=== PATIENT | male | born 1965 | race Caucasian/White ===

== ENCOUNTER 2016-08-21 02:39 | Inpatient (IN) | payer OTHER ==
[~2016-08-21] VITALS: Ht 170.2 cm; Wt 82.9 kg
[2016-08-21] VITALS (31 sets, daily range): BP systolic 101–129; BP diastolic 57–70; PULSE 48–66; RESP 10–20; TEMP 98; Ht 170.2 cm; Wt 82.9 kg
[2016-08-21] MEDS ORDERED: morphine 4 MG/ML VIAL IV STA (06:52)
[2016-08-21] MEDS ORDERED: ONDANSETRON 4 MG INJ IV STA (06:52)
--- NOTE | 2016-08-21 07:19 | RADRPT ---
PROCEDURE: CT of the abdomen and pelvis without contrast CLINICAL INDICATION: Abdominal Pain. TECHNIQUE: Spiral CT images through the abdomen and pelvis without the use of contrast. The admin istered radiation dose is CTDI 10.14 and DLP 672.02. One or more of the following dose reduction te chniques were used: automated exposure control, adjustment of the mA and/or kV according to patient size, or use of iterative reconstruction technique. COMPARISON: None FINDINGS: Lack of oral and intravenous contrast somewhat limits evaluation. Slight dependent atelectasis of the lung bases is seen. No pleural effusion is seen. Small hiatal hernia. The liver, spleen, adrenals, kidneys, and pancreas are unremarkable in appearance. The gallbladder is grossly unremarkable. No biliary or pancreatic ductal dilatation is seen.. The appendix is sign ificantly dilated, measuring up to 1.2 cm in diameter. There is marked surrounding inflammatory bob nge which does extend to involve the terminal ileum as well. No definite free air or focal drainabl e fluid collection is seen. There is mild inflammatory change of the base of the cecum. There is s ubmucosal fat of the cecum. Trace pelvic free fluid. Mildly prominent prostate. Decompressed urin scottie bladder. No adenopathy is seen. No bony abnormality is seen.. IMPRESSION: Acute appendicitis with probable secondary inflammatory involvement of the terminal ileum. The degr ee of inflammation suggests probable at least focal rupture but no definite free air or abscess is s een. Trace pelvic free fluid. Results were called to the Nelsy ESCALERA, at 08/21/2016 7:17:15 AM . RPTAT: HLBE Physician Rudolph Date Time Electronically viewed and signed by Physician Rudolph on 08/21/2016 07:19 LE/
[2016-08-21 07:28] LABS: ADD SCAN DIFF NO
[2016-08-21] MEDS ORDERED: SOD CHLORIDE 0.9% 1,000 ML IV ONE (07:30)
[2016-08-21] MEDS ORDERED: PIPER-TAZO 3.375 GM IV (PMX) 100 ML IVPB ONE ×2 (07:30→14:00)
--- NOTE | 2016-08-21 07:30 | ERD ---
ER Documentation Chief Complaint Date/Time DATE: 08/21/16 TIME: 07:28 Chief Complaint abdominal pain x 2 days HPI Is a 50-year-old male who presents to the emergency department today complaining of right-sided abdominal pain for the past 3 days that he states is getting worse. He has not taken any medication for the pain. Denies any nausea vomiting diarrhea. States he is not constipated. States he has had decreased appetite. Denies any fevers or chills. ROS All systems reviewed and are negative except as per history of present illness. Allergies Allergies: Coded Allergies: No Known Drug Allergies (Verified Allergy, Unknown, 08/21/16) PMhx/Soc Medical and Surgical Hx: pt denies Medical Hx, pt denies Surgical Hx Hx Alcohol Use: No Hx Substance Use: No Hx Tobacco Use: No Smoking Status: Never smoker Physical Exam Vitals Vital Signs Date Time Temp Pulse Resp B/P Pulse Ox O2 Delivery O2 Flow Rate FiO2 08/21/16 06:32 99.3 72 17 129/73 96 Room Air 08/21/16 02:47 99.0 77 20 128/75 97 Physical Exam Const: No acute distress Head: Atraumatic Eyes: Normal Conjunctiva ENT: Normal External Ears, Nose and Mouth. Neck: Full range of motion..~ No meningismus. Resp: Clear to auscultation bilaterally Cardio: Regular rate and rhythm, no murmurs Abd: Soft, right lower quadrant tenderness. Tenderness at McBurney's per non distended. Normal bowel sounds no left lower quadrant pain. Skin: No petechiae or rashes Back: No midline or flank tenderness. No CVA tenderness. Ext: No cyanosis, or edema Neur: Awake and alert Psych: Normal Mood and Affect Result Diagram: 08/21/16 0715 08/21/16 0715 Results 24 hrs Laboratory Tests Test 08/21/16 07:15 White Blood Count 13.310^3/ul Red Blood Count 5.0110^6/ul Hemoglobin 14.6g/dl Hematocrit 43.3% Mean Corpuscular Volume 86.4fl Mean Corpuscular Hemoglobin 29.1pg Mean Corpuscular Hemoglobin Concent 33.7g/dl Red Cell Distribution Width 12.2% Platelet Count 69874^3/UL Mean Platelet Volume 11.1fl Neutrophils % 78.4% Lymphocytes % 10.1% Monocytes % 10.2% Eosinophils % 0.7% Basophils % 0.2% Nucleated Red Blood Cells % 0.0/100WBC Neutrophils # 10.410^3/ul Lymphocytes # 1.310^3/ul Monocytes # 1.410^3/ul Eosinophils # 0.110^3/ul Basophils # 0.010^3/ul Nucleated Red Blood Cells # 0.010^3/ul Prothrombin Time 13.0Sec Prothrombin Time Ratio 1.0 INR International Normalized Ratio 0.98 Activated Partial Thromboplast Time 30.2Sec Urine Color YELLOW Urine Clarity CLEAR Urine pH 6.0 Urine Specific [place] >=1.030 Urine Ketones 15 Urine Nitrite NEGATIVE Urine Bilirubin 1+ Urine Ictotest NEGATIVE Urine Urobilinogen 1.0 E.U./dL Urine Leukocyte Esterase NEGATIVE Urine Microscopic RBC 0-2/HPF Urine Microscopic WBC 0-2/HPF Urine Mucus MODERATE Urine Hemoglobin NEGATIVE Urine Glucose NEGATIVE% Urine Total Protein TRACE Sodium Level 140mmol/L Potassium Level 3.5mmol/L Chloride Level 100mmol/L Carbon Dioxide Level 28mmol/L Anion Gap 16 Blood Urea Nitrogen 9mg/dl Creatinine 1.03mg/dl Glucose Level 110mg/dl Calcium Level 9.5mg/dl Total Bilirubin 0.9mg/dl Direct Bilirubin 0.00mg/dl Indirect Bilirubin 0.9mg/dl Aspartate Amino Transf (AST/SGOT) 20IU/L Alanine Aminotransferase (ALT/SGPT) 29IU/L Alkaline Phosphatase 96IU/L Total Protein 7.9g/dl Albumin 4.9g/dl Globulin 3.00g/dl Albumin/Globulin Ratio 1.63 Lipase 60U/L Current Medications Medications (Trade) Dose Ordered Sig/Elijah Route PRN Reason Start Time Stop Time Status Last Admin Dose Admin Morphine Sulfate (morphine) 4 mg ONCE STAT IV 08/21/16 06:52 08/21/16 06:53 DC 08/21/16 07:15 Ondansetron HCl 4 mg 4 mg ONCE STAT IV 08/21/16 06:52 08/21/16 06:53 DC 08/21/16 07:15 Piperacillin Sod/ Tazobactam Sod 100 ml @ 200 mls/hr ONCE ONCE IVPB 08/21/16 07:30 08/21/16 07:59 DC 08/21/16 07:41 Sodium Chloride (NS) 1,000 ml @ 1,000 mls/hr Q1H ONCE IV 08/21/16 07:30 08/21/16 08:29 DC 08/21/16 07:42 DIAGNOSTIC IMAGING REPORT Patient: JUAN J ZAPATA : 1965 Age: 50 Sex: M MR #: [id number] DOS: 08/21/16 0652 Ordering MD: NELSY ROSENTHAL PA-C Location: [facility] Room/Bed: PROCEDURE: CT of the abdomen and pelvis without contrast CLINICAL INDICATION: Abdominal Pain. TECHNIQUE: Spiral CT images through the abdomen and pelvis without the use of contrast. The administered radiation dose is CTDI 10.14 and DLP 672.02. One or more of the following dose reduction techniques were used: automated exposure control, adjustment of the mA and/or kV according to patient size, or use of iterative reconstruction technique. COMPARISON: None FINDINGS: Lack of oral and intravenous contrast somewhat limits evaluation. Slight dependent atelectasis of the lung bases is seen. No pleural effusion is seen. Small hiatal hernia. The liver, spleen, adrenals, kidneys, and pancreas are unremarkable in appearance. The gallbladder is grossly unremarkable. No biliary or pancreatic ductal dilatation is seen.. The appendix is significantly dilated, measuring up to 1.2 cm in diameter. There is marked surrounding inflammatory change which does extend to involve the terminal ileum as well. No definite free air or focal drainable fluid collection is seen. There is mild inflammatory change of the base of the cecum. There is submucosal fat of the cecum. Trace pelvic free fluid. Mildly prominent prostate. Decompressed urinary bladder. No adenopathy is seen. No bony abnormality is seen.. IMPRESSION: Acute appendicitis with probable secondary inflammatory involvement of the terminal ileum. The degree of inflammation suggests probable at least focal rupture but no definite free air or abscess is seen. Trace pelvic free fluid. Results were called to the Nelsy ESCALERA, at 08/21/2016 7:17:15 AM . RPTAT: HLBE Physician Rudolph Date Time Electronically viewed and signed by Concepcion Harrington Physician on 08/21/2016 07 :19 LE/ CC: NELSY ROSENTHAL PA-C Procedures/[facility] This is a 50-year-old male who presents to the emergency department today complaining of right-sided abdominal pain for the past 3 days that he states is getting worse. On physical exam patient had a significant amount of right right lower quadrant tenderness specifically at McBurney's. Given this I did obtain laboratory work as well as imaging Laboratory work shows an elevated white blood cell count of 13.3. He is not anemic. Platelets are within normal limits. Electrolytes are within normal limits. Liver functions within normal limits. Lipase within normal limits. Coags are within normal limits UA is negative for infection. CT abdomen pelvis noncontrast I received a call from the radiologist Dr. Harrington with the results stating the patient has acute appendicitis with probable secondary inflammatory involvement of the terminal ileum. The degree of inflammation suggests probable at least focal rupture but no definite free air or abscess is seen. There is trace pelvic free fluid. The appendix is significantly dilated measuring up to 1.2 cm in diameter. There is marked surrounding inflammatory change. Spoke to Dr. Sanderson about the patient and he is agreed to admit the patient he will place a call to the surgeon welder apprentice combination. I have explained the results to the patient. Patient was given fluids and Zosyn here in the emergency department. Any further orders placed will be done by Dr. Sanderson, the admitting physician or the surgeon. Departure Diagnosis: Primary Impression: Appendicitis Appendicitis type: acute appendicitis Acute appendicitis type: unspecified acute appendicitis type Qualified Code: K35.80 - Acute appendicitis, unspecified acute appendicitis type Condition: Fair NELSY ROSENTHAL PA-C Aug 21, 2016 07:30
[2016-08-21 07:36] LABS: BASOPHILS % 0.2 % (0.0-2.0); EOSINOPHILS # 0.1 10^3/ul (0.0-0.5); EOSINOPHILS % 0.7 % (0.0-7.0); HEMATOCRIT 43.3 % (42.0-52.0); HEMOGLOBIN 14.6 g/dl (14.0-18.0); LYMPHOCYTES # 1.3 10^3/ul (0.8-2.9); LYMPHOCYTES % 10.1 % (15.0-51.0); MEAN CORPUSCULAR HEMOGLOBIN 29.1 pg (29.0-33.0); MEAN CORPUSCULAR HGB CONC 33.7 g/dl (32.0-37.0); MEAN CORPUSCULAR VOLUME 86.4 fl (82.0-101.0); MEAN PLATELET VOLUME 11.1 fl (7.4-10.4); MONOCYTE # 1.4 10^3/ul (0.3-0.9); MONOCYTES % 10.2 % (0.0-11.0); NEUTROPHIL # 10.4 10^3/ul (1.6-7.5); NEUTROPHILS % 78.4 % (39.0-77.0); PLATELET COUNT 296 10^3/UL (140-415); RED BLOOD COUNT 5.01 10^6/ul (4.70-6.10); RED CELL DISTRIBUTION WIDTH 12.2 % (11.5-14.5); WHITE BLOOD COUNT 13.3 10^3/ul (4.8-10.8)
[2016-08-21 07:37] LABS: ADD UMIC YES; UR BILIRUBIN (Dip) 1+ (NEGATIVE); UR BLOOD (Dip) NEGATIVE (NEGATIVE); UR CLARITY CLEAR (CLEAR); UR COLOR YELLOW (YELLOW); UR GLUCOSE (Dip) NEGATIVE (NEGATIVE); UR KETONES (Dip) 15 (NEGATIVE); UR LEUKOCYTE ESTERASE (Dip) NEGATIVE (NEGATIVE); UR NITRITE (Dip) NEGATIVE (NEGATIVE); UR TOTAL PROTEIN (Dip) TRACE (NEGATIVE); UR UROBILINOGEN (Dip) 1.0 E.U./dL (0.1-1.0)
[2016-08-21 07:47] LABS: UR MUCUS MODERATE; URINE RBCS 0-2 /HPF (0)
[2016-08-21 07:48] LABS: ICTOTEST NEGATIVE (NEGATIVE)
[2016-08-21 07:53] LABS: INR 0.98
[2016-08-21 07:54] LABS: PARTIAL THROMBOPLASTIN TIME 30.2 Sec (25.0-35.0)
[2016-08-21 08:11] LABS: ALBUMIN 4.9 g/dl (3.3-4.9); ALBUMIN/GLOBULIN RATIO 1.63; BILIRUBIN,INDIRECT 0.9 mg/dl (0-1.1); BILIRUBIN,TOTAL 0.9 mg/dl (0.2-1.3); CALCIUM 9.5 mg/dl (8.4-10.2); CREATININE 1.03 mg/dl (0.61-1.24); POTASSIUM 3.5 mmol/L (3.5-5.1); TOTAL PROTEIN 7.9 g/dl (6.1-8.1)
[2016-08-21] MEDS ORDERED: ACETAMINOPHEN 325 MG TAB PO PRN (09:00)
[2016-08-21] MEDS ORDERED: ONDANSETRON 4 MG INJ IV PRN ×3 (09:00→16:00)
[2016-08-21] MEDS ORDERED: DEXTROSE 5%-0.45% NACL 1,000 ML IV SCH (12:48)
[2016-08-21] MEDS ORDERED: morphine 4 MG/ML VIAL IV PRN (13:00)
[2016-08-21] MEDS ORDERED: HYDROmorphONE 1 MG/ML SYG IV PRN ×2 (13:00→17:30)
[2016-08-21] MEDS ORDERED: NACL 0.9% 3 ML SYG IV SCH (13:00)
--- NOTE | 2016-08-21 15:03 | HPN ---
Date/Time of Note Date/Time of Note DATE: 08/21/16 TIME: 15:03 Interval H&P Admission Note Pt. seen H&P reviewed: No system changes Pt. seen H&P reviewed. No system changes (I attest that I have seen and examined the patient and reviewed the operation in detail, as well as its risks , benefits and alternatives of the operation). I attest that I have seen and examined the patient and reviewed in detail the operation, and its associated risks, benefits and alternative. I have answered all the patient's questions to the best of my ability and the patient wishes to proceed. Please refer to rest of electronic medical record for additional updates. MARIO NELSON M.D. Aug 21, 2016 15:03
[2016-08-21] MEDS ORDERED: BUPIVACAINE 0.25%/EPI (SDV) 30 ML INJ ONE (15:28)
[2016-08-21] MEDS ORDERED: MIDAZOLAM 1 MG/ML 2 ML INJ ONE (15:50)
[2016-08-21] MEDS ORDERED: morphine (1 MG/ML) 10ML SYRINGE IV PRN ×2 (16:00)
[2016-08-21] MEDS ORDERED: DIPHENHYDRAMINE 50 MG INJ IV PRN (16:00)
[2016-08-21] MEDS ORDERED: MEPERIDINE 25 MG INJ IV PRN (16:00)
[2016-08-21] MEDS ORDERED: FENTAnyl 50 MCG/ML VIAL IV PRN (16:00)
[2016-08-21] MEDS ORDERED: NEOSTIGMINE 3 MG/3 ML SYRINGE ONE (17:08)
[2016-08-21] MEDS ORDERED: LIDOCAINE 2% (SDV) 5 ML INJ ONE (17:08)
[2016-08-21] MEDS ORDERED: GLYCOPYRROLATE 0.4 MG INJ ONE (17:08)
[2016-08-21] MEDS ORDERED: PROPOFOL 20 ML ONE (17:08)
[2016-08-21] MEDS ORDERED: ROCURONIUM 50 MG INJ ONE (17:08)
[2016-08-21] MEDS ORDERED: ONDANSETRON 4 MG INJ ONE (17:09)
--- NOTE | 2016-08-21 17:18 | CONS ---
[facility] INITIAL INPATIENT CONSULTATION NOTE DATE OF CONSULTATION: 08/21/2016 PLACE OF SERVICE: [facility] preoperative area. ASSESSMENT AND PLAN: A very pleasant 50-year-old gentleman with only main comorbidity of BMI 26.9, presenting with acute appendicitis with possible local perforation and some inflammation of the terminal ileum. I have recommended laparoscopic appendectomy and reviewed the risks, benefits and alternatives of this procedure with the patient and his , who appeared to understand and agreed with the plans as proposed. With above assessment, I recommend the followin. To the operating room for above. Thank you again for allowing us to participate in the care of this very pleasant gentleman and his wonderful family. If there are any questions, please feel free to contact me at [phone]. UPDATED CLINICAL SUMMARY: The patient is a very pleasant 50-year-old gentleman with comorbidities including BMI 26.9 admitted through the emergency department at [facility] on 08/21/2016 with abdominal pain of 3-4-day duration in the right lower quadrant. White blood cell count 13.[address] scan of abdomen and pelvis showing significant dilated appendix up to 1.2 cm in diameter. All are concerning for acute appendicitis with possible focal rupture but with no definitive abscess or free air. COMORBIDITIES: 1. BMI 26.9. 2. Acute appendicitis 08/21/2016 [facility]. 3. Possible inflammation of the terminal ileum (likely reactive to patient's acute appendicitis). DATE OF ADMISSION: 08/21/2016 HISTORY OF PRESENT ILLNESS: The patient is a very pleasant 50-year-old gentleman with above-mentioned comorbidities whom we were kindly asked to consult regarding management of possible acute appendicitis. The patient reported having abdominal pain for at least the last 3 to 4 days without significant nausea and no vomiting. Also, no chills or fevers and perhaps a little difficulty with constipation, but normally he is not constipated or having diarrhea. He does not report any blood in the stool or urine and no other major complaints. ALLERGIES: NO KNOWN DRUG ALLERGIES. HOME MEDICATIONS: None. SOCIAL HISTORY: The patient lives with his and family. 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 He does not report any smoking, drinking, or intravenous drug use. FAMILY HISTORY: There is no mention of major medical, surgical or oncologic problems in the family. REVIEW OF SYSTEMS: Other than the above-mentioned, there are no other pertinent positives or pertinent negatives in a complete 14-point review of systems. PHYSICAL EXAMINATION: GENERAL: The patient appears to be a very pleasant gentleman of descent, appearing stated age, lying in bed comfortably and in no acute distress. His BMI is 26.9. VITAL SIGNS: His temperature is 98.0, blood pressure 139/71, pulse 69, respiratory rate 16, pulse oximetry 97% on room air. HEENT: Normocephalic and atraumatic. Extraocular muscles and hearing are grossly intact bilaterally and symmetrically. Sclerae are nonicteric. Oral cavity is clear; oral mucosa appeared to be pink and moist. Dentition: fair. NECK: Supple. There is no lymphadenopathy or JVD. There is no submental, submandibular or supraclavicular lymphadenopathy. CHEST: Rises symmetrically with each breath; patient is breathing comfortably. There are no audible wheezes, rales or rhonchi on the gross exam. HEART: Pulse is regular and palpable on the left wrist. Capillary refill was normal. Carotid pulses are palpable bilaterally and symmetrically in the neck. EXTREMITIES: Lower extremities contain no pitting edema around the ankles bilaterally and symmetrically. ABDOMEN: Soft, nondistended and tender to palpation in the right lower quadrant. There is no evidence of organomegaly, caput medusae, engorged subcutaneous veins, or ascites. There are no peritoneal signs or guarding. SKIN: Appears to be pink and feels warm to touch. NEUROLOGIC: Awake, alert, and follows commands appropriately. LABORATORY DATA: White blood cell count 13.3, platelets 296. Electrolytes are normal and the rest of his labs are all normal. Urinalysis showed no leukocyte esterase or nitrite positivity. IMAGING: Reviewed above. Note that I personally reviewed all the available and pertinent images and I agree in general with their overall reported findings. Dictated By: MARIO PENA/ADRIANA Conf#: [id number] DID#: [id number] MTDD
--- NOTE | 2016-08-21 17:27 | OPR ---
Date/Time of Note Date/Time of Note DATE: 08/21/16 TIME: 17:26 Operative Report Operative\Procedure Findings [facility] INPATIENT OPERATIVE NOTE PLACE OF SERVICE: [facility] DATE OF SURGERY: 08/21/2016 PREOPERATIVE DIAGNOSIS: 1. Acute appendicitis 2. Acute appendicitis 08/21/2016 [facility]. 3. Possible inflammation of the terminal ileum (likely reactive to patient's acute appendicitis). 4. BMI 26.9. POSTOPERATIVE DIAGNOSIS: 1. Acute appendicitis 2. Acute appendicitis 08/21/2016 [facility]. 3. Possible inflammation of the terminal ileum (likely reactive to patient's acute appendicitis). 4. BMI 26.9. OPERATION: 1. Laparoscopic appendectomy SURGEON: Mario Cerda M.D. AIR BRUSH OPERATOR: None ANESTHESIA: General endotracheal tube anesthesia ANESTHESIOLOGIST: Miki Henderson M.D. BRIEF SUMMARY: An otherwise uncomplicated laparoscopic appendectomy was performed with findings of non-perforated appendicitis. UPDATED CLINICAL SUMMARY: The patient is a very pleasant 50-year-old gentleman with comorbidities including BMI 26.9 admitted through the emergency department at [facility] on 08/21/2016 with abdominal pain of 3-4-day duration in the right lower quadrant. White blood cell count 13.[address] scan of abdomen and pelvis showing significant dilated appendix up to 1.2 cm in diameter. All are concerning for acute appendicitis with possible focal rupture but with no definitive abscess or free air. COMORBIDITIES: 1. BMI 26.9. 2. Acute appendicitis 08/21/2016 [facility]. 3. Possible inflammation of the terminal ileum (likely reactive to patient's acute appendicitis). BRIEF HISTORY: The patient is a very pleasant 50-year-old gentleman with above- mentioned comorbidities, was kindly asked to consult regarding management of his acute appendicitis. I met with the patient and family and counseled them regarding the possible options of treatment, and I strongly suggested a laparoscopic, possible open appendectomy. We reviewed the operation in detail as well as the risks, benefits, alternatives, and expected outcomes of this operation. After careful consideration of all the risks, benefits, and alternatives, the patient and family appeared to understand those risks and wished to proceed with surgery. For a detailed report of my consultation with patient and family, please refer to my separate consultation note. STATEMENT OF THE INFORMED CONSENT: The patient and family appeared to understand the risks of the operation to include, but not be limited to risk of postoperative pain and scar tissue, possible infection or bleeding requiring other interventions such as opening the wound, placement of drainage catheters, or other operative interventions; possible injury to surrounding to structures including bowel, bladder, bile duct, or blood vessels, or solid organs such as liver, kidney, or pancreas requiring other interventions or procedures; possible leakage of bowel from anastomotic sites or suture lines causing significant increase in morbidity and mortality and requiring multiple interventions including but not limited to, placement of drainage catheters, imaging studies, as well as operative interventions; possible other source of sepsis such as urinary tract infections or pneumonias, or other sources of potentially life threatening problems such as deep venous thrombus formation causing pulmonary embolism, myocardial arrhythmias and infarctions, and even . After careful consideration of all their options, the patient and family appeared to understand and wished to proceed with surgery. DESCRIPTION OF PROCEDURE: After obtaining informed consent, the patient was brought into the operating room and was placed in a normal supine position, where successful general endotracheal tube anesthesia was performed. Intravenous access was already in place and intravenous antimicrobials had been appropriately chosen and dosed prior to the operation. The patient's abdominal skin was prepped and draped from the nipple line down to the level of the upper thighs in the usual sterile fashion. We then called a surgical time-out where the patient's identification, date of , nature of the operation, allergies , presence of intravenous antimicrobials, presence of needed equipment, and any other concerns were reviewed and agreed upon by all members of the operating room team. We then started the operation by placing a 5 mm skin incision in the left lower quadrant and then introduced a 5 mm [employer] trocar into the peritoneal space, visualizing all the layers of the abdominal wall as we entered. Note that there was no indication of any injury to underlying structures with our entry into the peritoneal space. We insufflated the abdominal cavity to a maximum pressure of 15 mmHg and again inspected the area of insertion and ensured no obvious injury to underlying structures prior to inspecting the abdominal cavity and showing no obvious pus, bowel contents, or other abnormal features. We could not see the appendix very well. We, therefore, injected the future sites of our other trocars with 0.25% Marcaine with epinephrine and placed a 5 mm [employer] trocar into the midline suprapubic area, taking care not to injure the bladder. We also placed a 12 mm trocar in the umbilical midline area, all under direct visualization. With our instruments in place, we had excellent visualization and access to the right lower quadrant. We then identified the appendix, which was inflamed but had a normal base coming out of the cecum. I then went ahead and used judicious amount of cautery as well as mostly blunt dissection to circumferentially isolate the base of the appendix and then transected this using one firing of the white load of the Endo -ADRIANA stapler. We also repeated the firing on the mesentery of the appendix and completely disconnected the organ from the colon, delivered this out through the 12 mm trocar site inside of an EndoCatch bag without having to enlarge the fascial defect as well as without contaminating the wound. The specimen was sent to Pathology for further analysis. We then ensured adequate hemostasis and bile stasis, removed all our equipment including the pneumoperitoneum from the abdominal cavity prior to closing the infraumbilical fascia with 1 figure-of- eight 0 Vicryl suture on a UR-6 needle, washing the wounds with copious amounts of normal saline, injecting the initial insertion point of the trocar with 0.25 % Marcaine with epinephrine, and then closing the skin using interrupted 4-0 Monocryl sutures. Light dressing was then applied. At the end of the operation, both the sponge count and needle count were reportedly correct x2. The patient tolerated the procedure without any reported complications. ESTIMATED BLOOD LOSS: Less than 10 mL. BLOOD OR BLOOD PRODUCT TRANSFUSIONS: None to my knowledge. SPECIMENS: 1. Appendix COMPLICATIONS: None. DISPOSITION: Recovery area. Disclaimer: Inadvertent spelling and grammatical errors are likely due to EHR/ dictation software use and do not reflect on the quality of delivered patient care. MARIO CERDA M.D. Aug 21, 2016 17:27
[2016-08-21] MEDS ORDERED: DOCUSATE SODIUM 100 MG CAP PO PRN (17:30)
[2016-08-21] MEDS ORDERED: BISACODYL 10 MG SUPP PR PRN (17:30)
[2016-08-21] MEDS ORDERED: HYDROCODONE/APAP (5/325) TAB PO PRN (17:30)
[2016-08-21] MEDS ORDERED: NA PHOSPHATE/BIPHOS 133 ML ENEMA PR PRN (17:30)
--- NOTE | 2016-08-21 21:56 | HP ---
Date/Time of Note Date/Time of Note DATE: 08/21/16 TIME: 21:55 Assessment/Plan VTE Prophylaxis VTE Prophylaxis Intervention: SCD's Lines/Catheters IV Catheter Type (from Nrsg): Peripheral IV Assessment/Plan Assessment/Plan IMPRESSION 1. Acute appendicitis; s/p Laparoscopic appendectomy 2. Leukocytosis 2/2 above PLAN advice diet as tolerated pain mgmt d/c when cleared by surgery HPI/ROS Admit Date/Time Admit Date/Time Aug 21, 2016 at 21:53 Hx of Present Illness This is a 50 yo male who came for abd pain and found to have acute appendicitis. He is already s/p Laparoscopic appendectomy. Except intermittent pain at surgical site, pt does not have any complaints. PMH/Family/Social Social History Smoking Status: Never smoker Exam/Review of Systems Vital Signs Vitals Vital Signs Date Time Temp Pulse Resp B/P Pulse Ox O2 Delivery O2 Flow Rate FiO2 08/21/16 19:50 60 13 110/64 98 Nasal Cannula 2.0 08/21/16 17:35 98.0 Exam Constitutional: alert, oriented, well developed Head: atraumatic, normocephalic Respiratory: clear to auscultation, normal air movement Cardiovascular: nl pulses, regular rate and rhythm Gastrointestinal: soft, surgical scars, tender Extremities: normal pulses Labs Result Diagram: 08/21/16 0715 08/21/16 0715 Medications Medications Current Medications Ondansetron HCl (Zofran Inj) 4 mg Q6H PRN IV NAUSEA AND/OR VOMITING; Start at 13:00 Morphine Sulfate (morphine) 4 mg Q4H PRN IV SEVERE PAIN LEVEL 7-10; Start 08/21 at 13:00 Hydromorphone HCl 0.5 mg 0.5 mg Q4H PRN IV SEVERE PAIN LEVEL 7-10; Start at 13:00 Potassium Chloride/Dextrose/ Sod Cl (D5-1/2ns + KCl 20 Meq) 1,000 ml @ 100 mls/ hr Q10H IV ; Start 08/21/16 at 17:19 Acetaminophen/ Hydrocodone Bitart ([place] (5/325)) 1 tab Q4H PRN PO PAIN LEVEL 4 -7; Start 08/21/16 at 17:30 Acetaminophen/ Hydrocodone Bitart ([place] (5/325)) 2 tab Q4H PRN PO PAIN LEVEL 7 -10; Start 08/21/16 at 17:30 Hydromorphone HCl (Dilaudid) 0.5 mg Q2 PRN IV PAIN; Start 08/21/16 at 17:30 Hydromorphone HCl (Dilaudid) 1 mg Q2 PRN IV PAIN; Start 08/21/16 at 17:30 Docusate Sodium (Colace) 100 mg BID PRN PO CONSTIPATION; Start 08/21/16 at 17: 30 Bisacodyl (Dulcolax Supp) 10 mg BID PRN [place] CONSTIPATION; Start 08/21/16 at 17: 30 Sodium Biphosphate/ Sodium Phosphate (Fleet Enema) 133 ml BID PRN [place] CONSTIPATION; Start 08/21/16 at 17:30 Famotidine (Pepcid Iv) 20 mg DAILY IV ; Start 08/22/16 at 09:00 Enoxaparin Sodium (Lovenox) 40 mg DAILY SC ; Start 08/22/16 at 09:00 KARLA HALE MD Aug 21, 2016 21:56
[2016-08-21] MEDS: HYDROmorphONE 1 MG/ML SYG IV PRN (22:01)
[2016-08-21] MEDS: D5W-0.45 NACL + KCL 20 MEQ 1,000 ML IV SCH (22:01)
[2016-08-22] VITALS: BP 125/72; PULSE 68; RESP 18
[2016-08-22 04:00] VITALS: BP 120/68; PULSE 75; RESP 19
[2016-08-22 06:38] LABS: ADD SCAN DIFF NO
[2016-08-22 06:47] LABS: BASOPHILS % 0.1 % (0.0-2.0); EOSINOPHILS % 0.1 % (0.0-7.0); HEMOGLOBIN 12.6 g/dl (14.0-18.0); LYMPHOCYTES # 0.8 10^3/ul (0.8-2.9); LYMPHOCYTES % 7.2 % (15.0-51.0); MEAN CORPUSCULAR HEMOGLOBIN 29.4 pg (29.0-33.0); MEAN CORPUSCULAR HGB CONC 33.2 g/dl (32.0-37.0); MEAN CORPUSCULAR VOLUME 88.8 fl (82.0-101.0); MEAN PLATELET VOLUME 11.3 fl (7.4-10.4); MONOCYTE # 1.2 10^3/ul (0.3-0.9); MONOCYTES % 10.6 % (0.0-11.0); NEUTROPHIL # 9.1 10^3/ul (1.6-7.5); NEUTROPHILS % 81.7 % (39.0-77.0); PLATELET COUNT 250 10^3/UL (140-415); RED BLOOD COUNT 4.28 10^6/ul (4.70-6.10); RED CELL DISTRIBUTION WIDTH 12.4 % (11.5-14.5); WHITE BLOOD COUNT 11.1 10^3/ul (4.8-10.8)
[2016-08-22 07:08] LABS: INR 1.08; PT RATIO 1.1
[2016-08-22 07:09] LABS: PARTIAL THROMBOPLASTIN TIME 34.4 Sec (25.0-35.0)
[2016-08-22 07:37] LABS: ALBUMIN 3.9 g/dl (3.3-4.9); ALBUMIN/GLOBULIN RATIO 1.62; BILIRUBIN,INDIRECT 0.5 mg/dl (0-1.1); BILIRUBIN,TOTAL 0.5 mg/dl (0.2-1.3); CALCIUM 8.6 mg/dl (8.4-10.2); CREATININE 1.02 mg/dl (0.61-1.24); MAGNESIUM 1.9 mg/dl (1.7-2.5); PHOSPHORUS 3.6 mg/dl (2.5-4.9); TOTAL PROTEIN 6.3 g/dl (6.1-8.1)
[2016-08-22] MEDS: HYDROmorphONE 1 MG/ML SYG IV PRN (07:56)
[2016-08-22] MEDS: D5W-0.45 NACL + KCL 20 MEQ 1,000 ML IV SCH (07:57)
[2016-08-22 08:40] VITALS: BP 115/61; RESP 16
[2016-08-22] MEDS ORDERED: FAMOTIDINE 20 MG INJ IV SCH (09:00)
[2016-08-22] MEDS: HYDROCODONE/APAP (5/325) TAB PO PRN (09:24)
[2016-08-22] MEDS: ENOXAPARIN 40 MG/0.4 ML SYG SC SCH (09:26)
--- NOTE | 2016-08-22 15:29 | PN ---
Date/Time of Note Date/Time of Note DATE: 08/22/16 TIME: 15:23 Assessment/Plan VTE Prophylaxis VTE Prophylaxis Intervention: LMWH Lines/Catheters IV Catheter Type (from Nrs): Peripheral IV Urinary Cath still in place: No Assessment/Plan Assessment/Plan 50 yo male 1. Acute appendicitis; s/p Laparoscopic appendectomy POD#1 Soft diet today, patient reports Nausea Ambulating Pain control Appreciate recs from Dr Cerda D/c plan in AM with outpatient follow up with Surgery in 1 week Prophylaxis: Pepcid for GI ppx and Lovenox for dvt ppx Disposition: d/c home in AM if tolerating po Subjective 24 Hr Interval Summary Free Text/Dictation Patient doing good Some Nausea with lunch Soft diet and monitor o/n D/c plan in AM Exam/Review of Systems Vital Signs Vitals Vital Signs Date Time Temp Pulse Resp B/P Pulse Ox O2 Delivery O2 Flow Rate FiO2 08/22/16 08:40 98.7 52 16 115/61 98 08/22/16 04:00 Room Air 08/21/16 19:50 2.0 Intake and Output 08/21/16 08/21/16 08/22/16 15:00 23:00 07:00 Intake Total 1000 ml 1450 ml Output Total 5 ml 1150 ml Balance 995 ml 300 ml Exam Constitutional: alert, oriented, well developed Respiratory: clear to auscultation, normal air movement Cardiovascular: nl pulses, regular rate and rhythm Gastrointestinal: soft, tender (mild ) Musculoskeletal: nl extremities to inspection Extremities: normal pulses, other (no edema, clubbing or cyanosis ) Neurological: [employer] II-XII intact, nl mental status, nl speech, nl strength Results Result Diagram: 08/22/16 0447 08/22/16446 Results 24 hrs Laboratory Tests Test 08/22/16 04:47 White Blood Count 11.1 H Red Blood Count 4.28 L Hemoglobin 12.6 L Hematocrit 38.0 L Mean Corpuscular Volume 88.8 Mean Corpuscular Hemoglobin 29.4 Mean Corpuscular Hemoglobin Concent 33.2 Red Cell Distribution Width 12.4 Platelet Count 250 Mean Platelet Volume 11.3 H Neutrophils % 81.7 H Lymphocytes % 7.2 L Monocytes % 10.6 Eosinophils % 0.1 Basophils % 0.1 Nucleated Red Blood Cells % 0.0 Neutrophils # 9.1 H Lymphocytes # 0.8 Monocytes # 1.2 H Eosinophils # 0.0 Basophils # 0.0 Nucleated Red Blood Cells # 0.0 Prothrombin Time 14.0 Prothrombin Time Ratio 1.1 INR International Normalized Ratio 1.08 Activated Partial Thromboplast Time 34.4 Sodium Level 138 Potassium Level 4.0 Chloride Level 103 Carbon Dioxide Level 27 Anion Gap 12 Blood Urea Nitrogen 6 L Creatinine 1.02 Glucose Level 109 Calcium Level 8.6 Phosphorus Level 3.6 Magnesium Level 1.9 Total Bilirubin 0.5 Direct Bilirubin 0.00 Indirect Bilirubin 0.5 Aspartate Amino Transf (AST/SGOT) 19 Alanine Aminotransferase (ALT/SGPT) 26 Alkaline Phosphatase 81 Total Protein 6.3 # Albumin 3.9 # Globulin 2.40 Albumin/Globulin Ratio 1.62 Medications Medications Current Medications Ondansetron HCl (Zofran Inj) 4 mg Q6H PRN IV NAUSEA AND/OR VOMITING Last administered on 08/22/16 11:11; Admin Dose 4 MG; Start 08/21/16 at 13:00 Morphine Sulfate (morphine) 4 mg Q4H PRN IV SEVERE PAIN LEVEL 7-10; Start 08/21 at 13:00 Hydromorphone HCl 0.5 mg 0.5 mg Q4H PRN IV SEVERE PAIN LEVEL 7-10; Start at 13:00 Potassium Chloride/Dextrose/ Sod Cl (D5-1/2ns + KCl 20 Meq) 1,000 ml @ 100 mls/ hr Q10H IV Last administered on 08/22/16 07:57; Admin Dose 100 MLS/HR; Start 08/21/16 at 17:19 Acetaminophen/ Hydrocodone Bitart ([place] (5/325)) 1 tab Q4H PRN PO PAIN LEVEL 4 -7; Start 08/21/16 at 17:30 Acetaminophen/ Hydrocodone Bitart ([place] (5/325)) 2 tab Q4H PRN PO PAIN LEVEL 7 -10 Last administered on 08/22/16 09:24; Admin Dose 2 TAB; Start 08/21/16 at 17 :30 Hydromorphone HCl (Dilaudid) 0.5 mg Q2 PRN IV PAIN; Start 08/21/16 at 17:30 Hydromorphone HCl (Dilaudid) 1 mg Q2 PRN IV PAIN Last administered on 07:56; Admin Dose 1 MG; Start 08/21/16 at 17:30 Docusate Sodium (Colace) 100 mg BID PRN PO CONSTIPATION; Start 08/21/16 at 17: 30 Bisacodyl (Dulcolax Supp) 10 mg BID PRN IN CONSTIPATION; Start 08/21/16 at 17: 30 Sodium Biphosphate/ Sodium Phosphate (Fleet Enema) 133 ml BID PRN IN CONSTIPATION; Start 08/21/16 at 17:30 Famotidine (Pepcid Iv) 20 mg DAILY IV Last administered on 08/22/16 09:24; Admin Dose 20 MG; Start 08/22/16 at 09:00 Enoxaparin Sodium (Lovenox) 40 mg DAILY SC Last administered on 08/22/16 09:26 ; Admin Dose 40 MG; Start 08/22/16 at 09:00 LIANET FARFAN Aug 22, 2016 15:29
--- NOTE | 2016-08-22 16:47 | PN ---
Date/Time of Note Date/Time of Note DATE: 08/22/16 TIME: 16:43 Assessment/Plan Lines/Catheters IV Catheter Type (from Nrs): Peripheral IV Heath in Place (from [facility]): No Assessment/Plan Assessment/Plan [facility] Progress Note Date of Service: 08/22/16 Today's Impression & Plan: Overall doing well post op without major issues. No major wound problems. No indication for acute surgical intervention. May benefit from an extra day inhouse given the degree of inflammation of his appendix. With above assessment, I've recommended the following for today: 1. Keep inhouse 2. Increase activity 3. Increase ICS 4. Oral conversion 5. Labs in am 6. Possible d/c tomorrow am Thank you again for your great care of this very pleasant patient and wonderful family. If there are any questions, please feel free to call me at [phone]. TOTAL VISIT TIME: 20 minutes of which more than half was spent in [id number] discussion with the patient, possibly including family, as well as coordination of care between multiple physicians and providers. Disclaimer: Inadvertent spelling or grammatical errors are likely due to EHR/ dictation software use and do not reflect on the overall quality of patient care. Updated Clinical Summary: The patient is a very pleasant 50-year-old gentleman with comorbidities including BMI 26.9 admitted through the emergency department at [facility] on 08/21/2016 with abdominal pain of 3-4-day duration in the right lower quadrant. White blood cell count 13.[address] scan of abdomen and pelvis showing significant dilated appendix up to 1.2 cm in diameter. All are concerning for acute appendicitis with possible focal rupture but with no definitive abscess or free air. S/p lap appy [facility] 08/21/16 for acute non- perforated appendicitis. COMORBIDITIES: 1. Acute appendicitis, s/p lap appy [facility] 08/21/16 for acute non-perforated appendicitis 2. Acute appendicitis 08/21/2016 [facility]. 3. Possible inflammation of the terminal ileum (likely reactive to patient's acute appendicitis). 4. BMI 26.9. Subjective: No major events or complaints; no major abd pain and under control with medications; no n/v/d; no sob or cp; - flatus; - BM; minimal to no activity; only tolerated liquids Objective: Vitals: See below Exam: GENERAL: On exam, the patient was laying in bed and appeared to be comfortable and in no acute distress. ABDOMEN: Soft, nontender and nondistended. Incision dressings are clean, dry and intact without any evidence of obvious underlying erythema, edema, discharge , or hernia. There are no peritoneal signs or guarding. SKIN: Skin appears to be pink and feels warm to touch. NEUROLOGIC: Patient is awake, alert, and follows commands appropriately. Exam/Review of Systems Vital Signs Vitals Vital Signs Date Time Temp Pulse Resp B/P Pulse Ox O2 Delivery O2 Flow Rate FiO2 08/22/16 08:40 98.7 52 16 115/61 98 08/22/16 04:00 Room Air 08/21/16 19:50 2.0 Intake and Output 08/21/16 08/21/16 08/22/16 15:00 23:00 07:00 Intake Total 1000 ml 1450 ml Output Total 5 ml 1150 ml Balance 995 ml 300 ml Results Result Diagram: 08/22/16 0447 08/22/16 0447 MARIO NELSON M.D. Aug 22, 2016 16:47
[2016-08-22] MEDS: FAMOTIDINE 20 MG TAB PO SCH (20:50)
[2016-08-22 21:13] VITALS: BP 122/64; RESP 18
[2016-08-23] MEDS: HYDROCODONE/APAP (5/325) TAB PO PRN (05:07)
[2016-08-23 08:00] VITALS: BP 98/54; PULSE 61; RESP 18
[2016-08-23] MEDS: FAMOTIDINE 20 MG TAB PO SCH (08:12)
[2016-08-23] MEDS: ENOXAPARIN 40 MG/0.4 ML SYG SC SCH (08:13)
--- NOTE | 2016-08-23 10:54 | PN ---
Date/Time of Note Date/Time of Note DATE: 08/23/16 TIME: 10:51 Assessment/Plan VTE Prophylaxis VTE Prophylaxis Intervention: LMWH Lines/Catheters IV Catheter Type (from Nrsg): [place] Urinary Cath still in place: No Assessment/Plan Assessment/Plan 50 yo male 1. Acute appendicitis; s/p Laparoscopic appendectomy POD#2. Ambulating Tolerating Soft diet today, d/c home anad may advance to regular diet in 2 days Pain controlled Appreciate recs from Dr Cerda D/c home today with outpatient follow up with Surgery in 1 week Prophylaxis: Pepcid for GI ppx and Lovenox for dvt ppx Disposition: d/c home today Subjective 24 Hr Interval Summary Free Text/Dictation Patient doing well today and to go home today Exam/Review of Systems Vital Signs Vitals Vital Signs Date Time Temp Pulse Resp B/P Pulse Ox O2 Delivery O2 Flow Rate FiO2 08/22/16 21:13 97.9 58 18 122/64 94 08/22/16 04:00 Room Air 08/21/16 19:50 2.0 Intake and Output 08/22/16 08/22/16 08/23/16 15:00 23:00 07:00 Intake Total 200 ml 1760 ml 950 ml Output Total 650 ml Balance 200 ml 1110 ml 950 ml Exam Constitutional: alert, oriented, well developed Respiratory: clear to auscultation, normal air movement Cardiovascular: nl pulses, regular rate and rhythm Gastrointestinal: soft, tender (minimal around incision site ) Musculoskeletal: nl extremities to inspection Extremities: normal pulses Neurological: [employer] ARCHITECT II-XII intact, nl mental status, nl speech, nl strength Results Result Diagram: 08/22/16 0447 08/22/16 044 Medications Medications Current Medications Ondansetron HCl (Zofran Inj) 4 mg Q6H PRN IV NAUSEA AND/OR VOMITING Last administered on 08/22/16t 11:11; Admin Dose 4 MG; Start 08/21/16 at 13:00 Hydromorphone HCl (Dilaudid) 0.5 mg Q4H PRN IV SEVERE PAIN LEVEL 7-10; Start at 13:00 Acetaminophen/ Hydrocodone Bitart ([place] (5/325)) 1 tab Q4H PRN PO PAIN LEVEL 4 -7; Start 08/21/16 at 17:30 Acetaminophen/ Hydrocodone Bitart ([place] (5/325)) 2 tab Q4H PRN PO PAIN LEVEL 7 -10 Last administered on 08/23/16 05:07; Admin Dose 2 TAB; Start 08/21/16 at 17 :30 Docusate Sodium (Colace) 100 mg BID PRN PO CONSTIPATION; Start 08/21/16 at 17: 30 Bisacodyl (Dulcolax Supp) 10 mg BID PRN [place] CONSTIPATION; Start 08/21/16 at 17: 30 Sodium Biphosphate/ Sodium Phosphate (Fleet Enema) 133 ml BID PRN [place] CONSTIPATION; Start 08/21/16 at 17:30 Enoxaparin Sodium (Lovenox) 40 mg DAILY SC Last administered on 08/23/16 08:13 ; Admin Dose 40 MG; Start 08/22/16 at 09:00 Famotidine (Pepcid) 20 mg BID PO Last administered on 08/23/16 08:12; Admin Dose 20 MG; Start 08/22/16 at 21:00 LIANET FARFAN Aug 23, 2016 10:54
--- NOTE | 2016-08-23 10:56 | PDOCDIS ---
Discharge Instructions CONDITION Patient Condition: Good HOME CARE INSTRUCTIONS: Special Diet: softYour diet recommendation is: advance to regular diet in 2 days ACTIVITY: Activity Restrictions: Slowly Increase Activity Avoid heavy lifting Avoid Heavy Housework FOLLOW UP/APPOINTMENTS Appointments Followup with PCP within 1 week Follow up with Dr Cerda in 1 week SCHOOL/WORK RELEASE May return to School/Work on: Sep 06, 2016 LIANET FARFAN Aug 23, 2016 10:56
[2016-08-23] MEDS ORDERED: DOCU-216 PO (10:58)
[2016-08-23] MEDS ORDERED: HYDR-3498 PO (10:58)
== END 2016-08-23 12:50 | disposition home or self-care (01) | DRG 342 ==
LOC: FTE 02:39 → SDS 13:47 → PP2 21:53
PROVIDERS: ADMIT Internal Medicine; ATTEND Internal Medicine
PROC: 0DTJ4ZZ Resection of Appendix, Percutaneous Endoscopic Approach (ICD-10-PCS; principal; 2016-08-21 16:30)
DX: K35.80 Unspecified acute appendicitis (principal); K50.00 Crohn's disease of small intestine without complications
CPT/HCPCS: 36415; 74176; 80053; 81001; 82310; 83690; 83735; 84100; 85025; 85610; 85730; 86850; 86900; 86901; 88304; 96374; 96375; 96376; J1170; J1650; J2250; J2270; J2405; J2543; J2710; J3010; J3480; J7030; J7042

== ENCOUNTER 2016-09-06 10:37 | Outpatient (CLI) | payer OTHER ==
[~2016-09-06] VITALS: Ht 170.2 cm; Wt 76.4 kg
[~2016-09-06 10:37] MED LIST: DOCU-216 PO; HYDR-3498 PO
[2016-09-06 10:38] VITALS: BP 135/79; PULSE 65; RESP 16; Ht 170.2 cm; Wt 76.4 kg
--- NOTE | 2016-09-06 10:56 | PN ---
Date/Time of Note Date/Time of Note DATE: 09/06/16 TIME: 10:52 Assessment/Plan Assessment/Plan Assessment/Plan [facility] Progress Note Date of Service: 09/06/16 Today's Impression & Plan: Overall doing well post op without major issues. No major wound problems. No indication for acute surgical intervention. Reflux type symptoms likely not related to the surgery, but given the patient's age and the need for surveillance colonoscopy, it may be a good time to also do upper endoscopy to evaluate for gastritis. Patient does not have a primary care physician and I have asked the office to assist with assigning him one. No other major issues and the patient may return to work with the only restriction being no heavy lifting more than 25-30 pounds for the next 1-2 weeks. Answered all questions. With above assessment, I've recommended the following for today: 1. Follow with primary care physician 2. Consider referral to gastroenterology for upper and lower endoscopy 3. May return to work with only restriction of no more than 20-30 pound weight lifting for the next 1-2 weeks 4. Follow-up with us as needed Thank you again for your great care of this very pleasant patient and wonderful family. If there are any questions, please feel free to call me at [phone]. Disclaimer: Inadvertent spelling or grammatical errors are likely due to EHR/ dictation software use and do not reflect on the overall quality of patient care. Updated Clinical Summary: The patient is a very pleasant 50-year-old gentleman with comorbidities including BMI 26.9 admitted through the emergency department at [facility] on 08/21/2016 with abdominal pain of 3-4-day duration in the right lower quadrant. White blood cell count 13.[address] scan of abdomen and pelvis showing significant dilated appendix up to 1.2 cm in diameter. All are concerning for acute appendicitis with possible focal rupture but with no definitive abscess or free air. S/p lap appy [facility] 08/21/16 for acute non- perforated appendicitis. Discharge home 08/23/2016. COMORBIDITIES: 1. Acute appendicitis, s/p lap appy [facility] 08/21/16 for acute non-perforated appendicitis 2. Acute appendicitis 08/21/2016 [facility]. 3. Possible inflammation of the terminal ileum (likely reactive to patient's acute appendicitis). 4. BMI 26.9. Subjective: No major events or complaints; no major abd pain and not on pain medications; no n/v/d; no sob or cp; + flatus; + BM; + activity; only minor complaint is reflux type symptoms. These seem to have existed before surgery but seem to be more prominent now. Objective: Vitals: See below Exam: GENERAL: On exam, the patient was sitting in a chair and appeared to be comfortable and in no acute distress. ABDOMEN: Soft, nontender and nondistended. Incision dressings are clean, dry and intact without any evidence of obvious underlying erythema, edema, discharge , or hernia. There are no peritoneal signs or guarding. SKIN: Skin appears to be pink and feels warm to touch. NEUROLOGIC: Patient is awake, alert, and follows commands appropriately. MARIO NELSON M.D. Sep 06, 2016 10:56 MARIO NELSON M.D. Sep 06, 2016 10:56
== END 2016-09-06 16:11 | disposition home or self-care (01) ==
LOC: HPC 10:37
PROVIDERS: ATTEND Transplant Surgery
DX: K35.80 Unspecified acute appendicitis (principal)
CPT/HCPCS: G0463